=== PATIENT | male | born 1965 | race Caucasian/White ===

== ENCOUNTER 2018-06-01 03:40 | Emergency (ER) | payer BC ==
[2018-06-01 03:48] VITALS: BP 153/85
[2018-06-01] MEDS ORDERED: IPRATROPIUM/ALBUTEROL 0.5-2.5 MG/3 ML AMPUL NEB ONE ×3 (03:49→07:11)
[2018-06-01] MEDS ORDERED: PREDNISONE 20 MG TABLET PO ONE (03:49)
[2018-06-01] MEDS: ALBUTEROL SULFATE 0.083% NEB 2.5 MG/3 ML AMPUL NEB SCH ×2 (06:06→07:19)
[2018-06-01] MEDS ORDERED: PREDNISONE 20 MG TABLET ONE (06:11)
[2018-06-01 07:41] LABS: ABSOLUTE BASOPHILS # (AUTO) 0.1 10^3/uL (0.0-0.2); ABSOLUTE EOSINOPHILS # (AUTO) 0.4 10^3/uL (0.0-0.6); ABSOLUTE LYMPHOCYTES (AUTO) 1.8 10^3/uL (0.5-4.7); ABSOLUTE MONOCYTES (AUTO) 0.5 10^3/uL (0.1-1.4); BASOPHILS % (AUTO) 1.3 % (0-2); EOSINOPHILS % (AUTO) 6.4 % (0-6); HEMATOCRIT 43.6 % (37.9-51.0); LYMPHOCYTES % (AUTO) 31.7 % (13-45); MEAN CORPUSCULAR HEMOGLOBIN 29.2 pg (27.0-33.4); MEAN CORPUSCULAR HGB CONC 34.5 g/dL (32.0-36.0); MEAN CORPUSCULAR VOLUME 85 fl (80-97); PLATELET COUNT 151 10^3/uL (150-450); RED BLOOD COUNT 5.15 10^6/uL (4.35-5.55); RED CELL DISTRIBUTION WIDTH 12.8 % (11.5-14.0); SEGMENTED NEUTROPHILS % (AUTO) 51.6 % (42-78); TOTAL CELLS COUNTED % (AUTO) 100 %; WHITE BLOOD COUNT 5.7 10^3/uL (4.0-10.5)
--- NOTE | 2018-06-01 07:51 | RADIOLOGY REPORT (SQ) ---
EXAM DESCRIPTION: XR CHEST 2 VIEWS COMPLETED DATE/TME: 06/01/2018 07:12 CLINICAL HISTORY: SOB, asthmatic, cough COMPARISON: None. FINDINGS: Frontal and lateral views of the chest. The cardiomediastinal silhouette has normal size and contour. No consolidation, pneumothorax, or pleural effusion. No displaced rib fractures identified. Upper abdominal soft tissues are unremarkable. IMPRESSION: 1. No acute pulmonary process identified.
[2018-06-01] MEDS ORDERED: ALBUTEROL SULFATE HFA (90 MCG/PUFF) 8 GM MDI (1 MDI/ER DISP) IH ONE (07:54)
--- NOTE | 2018-06-01 07:59 | ER Document Report ---
ED General - General Chief Complaint: Shortness Of Breath Stated Complaint: ASTHMA SYMPTOMS Time Seen by Provider: 06/01/18 07:11 Mode of Arrival: Ambulatory Information source: Patient Notes: Patient is an otherwise healthy 53-year-old male who presents the emergency department with chief complaint of asthma exacerbation. Patient reports his symptoms started last night. 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 Patient believes these have irritated him and caused wheezing. Patient states that he is not having difficulty breathing however he is having some wheezing and [place]. He states he is here working. He denies any shortness of breath or chest pain. Patient otherwise feels well. TRAVEL OUTSIDE OF THE [place] IN LAST 30 DAYS: No - Related Data Allergies/Adverse Reactions: oxycodone [From Percocet] Allergy (Verified 06/01/18 03:41) Past Medical History - General Information source: Patient - Social History Smoking Status: Never Smoker Chew tobacco use (# tins/day): No Drug Abuse: None Family History: Reviewed & Not Pertinent Patient has suicidal ideation: No Patient has homicidal ideation: No Pulmonary Medical History: Reports: Hx Asthma Renal/ Medical History: Denies: Hx Peritoneal Dialysis Review of Systems - Review of Systems Constitutional: No symptoms reported EENT: No symptoms reported Cardiovascular: No symptoms reported Respiratory: Wheezing Gastrointestinal: No symptoms reported Genitourinary: No symptoms reported Male Genitourinary: No symptoms reported Musculoskeletal: No symptoms reported Skin: No symptoms reported Hematologic/Lymphatic: No symptoms reported Neurological/Psychological: No symptoms reported Physical Exam - Vital signs Vitals: Temp Pulse Resp BP Pulse Ox 97.7 F 85 20 153/85 H 98 06/01/18 03:43 06/01/18 03:43 06/01/18 03:43 06/01/18 03:43 06/01/18 03:43 - Notes Notes: PHYSICAL EXAMINATION: GENERAL: Well-appearing, well-nourished and in no acute distress. HEAD: Atraumatic, normocephalic. EYES: Pupils equal round and reactive to light, extraocular movements intact, sclera anicteric, conjunctiva are normal. ENT: Nares patent, oropharynx clear without exudates. Moist mucous membranes. NECK: Normal range of motion, supple without lymphadenopathy LUNGS: Breath sounds clear to auscultation bilaterally and equal. No wheezes rales or rhonchi. HEART: Regular rate and rhythm without murmurs ABDOMEN: Soft, nontender, nondistended abdomen. No guarding, no rebound. No masses appreciated. Musculoskeletal: Normal range of motion, no pitting or edema. No cyanosis. NEUROLOGICAL: Cranial nerves grossly intact. Normal speech, normal gait. Normal sensory, motor exams PSYCH: Normal mood, normal affect. SKIN: Warm, Dry, normal turgor, no rashes or lesions noted. Course - Re-evaluation Re-evalutation: 06/01/18 07:58 At the time of my mid initial evaluation patient has already been treated with breathing treatments. Patient reports he feels fine and is ready to go. His respiratory rate is 16 and his pulse ox was checked at the bedside and found to be 100%. Patient's lung sounds are clear to auscultation bilaterally. Patient is not a diabetic. Patient will be placed on prednisone 60 mg p.o. daily for 5 days and he will also be given a dispense albuterol. - Vital Signs Vital signs: Temp Pulse Resp BP Pulse Ox 97.7 F 85 20 153/85 H 98 06/01/18 03:43 06/01/18 03:43 06/01/18 03:43 06/01/18 03:43 06/01/18 03:43 - Laboratory Result Diagrams: 06/01/18 07:27 06/01/18 07:27 Laboratory results interpreted by me: 06/01/18 07:27 Eosinophils % 6.4 H Discharge - Discharge Clinical Impression: Asthma exacerbation Qualifiers: Asthma severity: mild Asthma persistence: unspecified Qualified Code(s): J45.901 - Unspecified asthma with (acute) exacerbation Condition: Stable Disposition: HOME, SELF-CARE Additional Instructions: Asthma You have been diagnosed as having asthma. This is a condition where there is episodic tightness in the bronchial tubes. Allergies, infections, and polluted or cold air may be contributing factors. Emergency treatment of a severe asthma attack may include adrenaline shots, or bronchodilator aerosol. You may feel lightheaded, have a decreased exercise tolerance and a rapid pulse for an hour or two. Rest and get plenty of fluids. Home treatment of asthma requires bronchodilator drugs. These can be administered by injection, inhalation, or by mouth. Antibiotics and corticosteroids may be required for some patients. You should avoid chemical fumes, dusts, pollens, and exercising in very cold or dry air. If you smoke, stop!! If you develop a fever, increased wheezing, chest pain, or severe shortness of breath, you should contact the doctor immediately Prescriptions: Prednisone [Deltasone 20 mg Tablet] 3 tab PO DAILY 5 Days #15 tablet
[2018-06-01 08:02] LABS: ALANINE AMINOTRANSFERASE 35 U/L (21-72); ALBUMIN 4.7 g/dL (3.5-5.0); ALKALINE PHOSPHATASE 75 U/L (38-126); ANION GAP 11 (5-19); ASPARTATE AMINO TRANSFERASE 48 U/L (17-59); BILIRUBIN,DIRECT 0.4 mg/dL (0.0-0.4); BILIRUBIN,TOTAL 0.7 mg/dL (0.2-1.3); BLOOD UREA NITROGEN 16 mg/dL (7-20); CALCIUM 8.9 mg/dL (8.4-10.2); CARBON DIOXIDE 29 mmol/L (22-30); CHLORIDE 101 mmol/L (98-107); GLUCOSE 156 mg/dL (75-110); SODIUM 141.4 mmol/L (137-145); TOTAL PROTEIN 8.4 g/dL (6.3-8.2)
== END 2018-06-01 08:07 | disposition home or self-care (01) ==
LOC: ER 03:40
DX: J45.901 Unspecified asthma with (acute) exacerbation (principal); R06.02 Shortness of breath; Z88.6 Allergy status to analgesic agent
CPT/HCPCS: 94640 ×2; 99285; 36415; 85025; 80053; 71046; J7512; J3490; J7620

== ENCOUNTER 2018-06-05 05:20 | Emergency (ER) | payer BC ==
[2018-06-05] MEDS ORDERED: IPRATROPIUM/ALBUTEROL 0.5-2.5 MG/3 ML AMPUL NEB ONE ×2 (06:21→07:11)
[2018-06-05] MEDS ORDERED: LIDOCAINE 1% INJ (10 MG/ML) 10 ML MDV INJ ONE (07:11)
[2018-06-05] MEDS ORDERED: ALBUTEROL SULFATE HFA (90 MCG/PUFF) 8 GM MDI (1 MDI/ER DISP) IH ONE (08:21)
[2018-06-05 08:34] VITALS: BP 151/82
--- NOTE | 2018-06-05 12:48 | ER Document Report ---
Entered by TAI WOMACK SCRIBE 06/05/18 0711 Acting as scribe for:RODRICK BRUNO MD ED Respiratory Problem - General Chief Complaint: Asthma Exacerbation Stated Complaint: TROUBLE BREATHING Time Seen by Provider: 06/05/18 07:00 Mode of Arrival: Ambulatory Information source: Patient Notes: 53-year-old male, here from [place] for work, that presents today with c omplaints of asthma exacerbation. Patient was seen here about 4 days ago for a similar complaint. Patient is on his last day of a 5 day course of 60 mg prednisone. Patient states he was given an inhaler which he has also used up. Patient states that he woke up wheezing with a persistent cough this morning. Patient states he has been unable to rest because he is working so much. Patient states he called his today and states he was going back to [place] to get some rest. Patient denies fevers. TRAVEL OUTSIDE OF THE [place] IN LAST 30 DAYS: No - Related Data Allergies/Adverse Reactions: oxycodone [From Percocet] Allergy (Verified 06/01/18 03:41) Past Medical History - General Information source: Patient - Social History Smoking Status: Never Smoker Cigarette use (# per day): No Chew tobacco use (# tins/day): No Frequency of alcohol use: None Drug Abuse: None Lives with: Family Family History: Reviewed & Not Pertinent Patient has suicidal ideation: No Patient has homicidal ideation: No Pulmonary Medical History: Reports: Hx Asthma Review of Systems - Review of Systems Constitutional: denies: Fever EENT: No symptoms reported Cardiovascular: No symptoms reported Respiratory: See HPI, Cough, Wheezing Gastrointestinal: No symptoms reported Genitourinary: No symptoms reported Male Genitourinary: No symptoms reported Musculoskeletal: No symptoms reported Skin: No symptoms reported Hematologic/Lymphatic: No symptoms reported Neurological/Psychological: No symptoms reported -: Yes All other systems reviewed and negative Physical Exam - Vital signs Vitals: Temp Pulse Resp BP Pulse Ox 97.4 F 74 22 H 153/85 H 100 06/05/18 05:26 06/05/18 05:26 06/05/18 05:26 06/05/18 05:26 06/05/18 05:26 - Notes Notes: Physical Exam: General: Alert, appears well. HEENT: Normocephalic. Atraumatic. PERRL. Extraocular movements intact. Oropharynx clear. Neck: Supple. Non-tender. Respiratory: No respiratory distress. Wheezing and rhonchi bilaterally worsened on the left. Cardiovascular: Regular rate and rhythm. Abdominal: Normal Inspection. Non-tender. No distension. Normal Bowel Sounds. Back: Non-tender. No deformity or step off. Extremities: Moves all four extremities. Upper extremities: Normal inspection. Normal ROM. Lower extremities: Normal inspection. No edema. Normal ROM. Neurological: Normal cognition. AAOx4. Normal speech. Psychological: Normal affect. Normal Mood. Skin: Warm. Dry. Normal color. Course - Re-evaluation Re-evalutation: 06/05/18 08:26 The patient has wheezes in the left chest have mostly cleared after the nebulizer treatment. He can tell an improvement in the cough due to the lidocaine. He will be discharged with additional prednisone to take when he finishes the prescription he received 4 days ago. He will be discharged with albuterol inhaler. He states he is returning home to [place] either today or tomorrow because he cannot get well and continue to work at the same time. - Vital Signs Vital signs: Temp Pulse Resp BP Pulse Ox 97.5 F 95 18 151/82 H 97 06/05/18 08:32 06/05/18 08:32 06/05/18 08:32 06/05/18 08:32 06/05/18 08:32 Discharge - Discharge Clinical Impression: Bronchitis with bronchospasm Disposition: HOME, SELF-CARE I personally performed the services described in the documentation, reviewed and edited the documentation which was dictated to the scribe in my presence, and it accurately records my words and actions.
== END 2018-06-05 08:34 | disposition home or self-care (01) ==
LOC: ER 05:20
DX: J45.901 Unspecified asthma with (acute) exacerbation (principal); R05 Cough; Z79.899 Other long term (current) drug therapy; Z79.52 Long term (current) use of systemic steroids
CPT/HCPCS: 94640 ×2; 99284; J3490; J7620